=== PATIENT | female | born 1970 | race Caucasian/White ===

== ENCOUNTER 2024-10-31 12:39 | Day surgery (SDC) | payer BC ==
[~2024-10-31] VITALS: Ht 162.6 cm; Wt 57.0 kg
[~2024-10-31 12:39] MED LIST: CYAN500T14 PO; FAMO40TA3 PO; VITA100093 PO
[2024-10-31] MEDS ORDERED: LIDOCAINE 2% 100MG/5ML SDV (FOR ANES.) As Ordered ONE (14:56)
[2024-10-31] MEDS ORDERED: propofoL 200 MG/20 ML VIAL As Ordered ONE (14:57)
[2024-10-31 15:02] VITALS: TEMP 97.4
[2024-10-31] MEDS ORDERED: SIMETHICONE 40MG/0.6ML DROPS 30ML As Ordered ONE (15:10)
[2024-10-31 15:16] VITALS: BP 110/70; O2SAT 98
== END 2024-10-31 15:24 | disposition home or self-care (01) ==
LOC: M OPP 12:39
PROVIDERS: ATTEND Internal Medicine Gastroenterology
DX: R13.10 Dysphagia, unspecified (principal); K44.9 Diaphragmatic hernia without obstruction or gangrene; E78.00 Pure hypercholesterolemia, unspecified; K21.9 Gastro-esophageal reflux disease without esophagitis; Z79.899 Other long term (current) drug therapy